=== PATIENT | female | born 1980 | race Hispanic/Latino ===

== ENCOUNTER 2021-01-15 16:28 | Emergency (ER) | payer MEDICAID ==
[~2021-01-15] VITALS: Ht 170.2 cm; Wt 81.6 kg
[2021-01-15] MEDS ORDERED: 0.9%NACL 1000ML 1,000 ML IV ONE (17:00)
[2021-01-15 17:04] LABS: BASOPHILS % (AUTO) 0.4 % (0.0-5.0); EOSINOPHILS % (AUTO) 1.1 % (0.0-8.0); HEMATOCRIT 38.3 % (36-48); LYMPHOCYTES % (AUTO) 23.1 % (21.0-51.0); MEAN CORPUSCULAR HEMOGLOBIN 30.7 pg (27.0-33.0); MEAN CORPUSCULAR HGB CONC 33.9 g/dL (32.0-36.0); MEAN CORPUSCULAR VOLUME 90.5 fL (79-99); MONOCYTES % (AUTO) 6.1 % (3.0-13.0); NEUTROPHILS % (AUTO) 68.9 % (40.0-77.0); PLATELET COUNT (AUTO) 260 K/uL (130-400); RED BLOOD CELL COUNT(AUTO) 4.23 MIL/uL (4.00-5.50); RED CELL DISTRIBUTION WIDTH 13.1 % (11.0-15.5); WHITE BLOOD COUNT (AUTO) 10.1 K/uL (4.8-10.8)
[2021-01-15 17:15] LABS: CREATININE 0.9 mg/dL (0.5-1.5); POTASSIUM 4.1 mmol/L (3.5-5.1)
[2021-01-15 17:20] LABS: BILIRUBIN,TOTAL 0.5 mg/dL (0.2-1.0)
[2021-01-15 17:46] LABS: APPEARANCE,URINE Cloudy (CLEAR); BILIRUBIN,URINE Negative (NEGATIVE); COLOR,URINE Yellow (YELLOW); GLUCOSE, URINE (UA) Negative (NEGATIVE); KETONES,URINE Trace mg/dL (NEGATIVE); LEUKOCYTE ESTERASE ,URINE Small (NEGATIVE); NITRATE,URINE Negative (NEGATIVE); OCCULT BLOOD,URINE Negative (NEGATIVE); PH,URINE 5.5 (5.0-8.0); PROTEIN,URINE Negative (NEGATIVE); UROBILINOGEN,URINE 0.2 mg/dL (0.2-1.0)
[2021-01-15 17:55] LABS: BACTERIA,URINE Few /HPF (None Seen); MUCUS,URINE Few LPF (None Seen); RBC,URINE 0-1 /HPF (0-1); SQUAMOUS EPITHELIAL CELL,UR Moderate /HPF (0-2)
[2021-01-15] MEDS ORDERED: IOHEXOL-350 75 ML VIAL IV ONE (18:38)
[2021-01-15 20:40] VITALS: BP 133/91
[2021-01-15] MEDS ORDERED: ONDANSETRON 4MG INJ IVP ONE (21:00)
[2021-01-15] MEDS ORDERED: MORPHINE 4 MG SYG IV ONE (21:00)
[2021-01-15] MEDS ORDERED: ONDANSETRON 4MG INJ ONE (21:07)
[2021-01-15] MEDS ORDERED: MORPHINE 4 MG SYG ONE (21:08)
[2021-01-15] MEDS ORDERED: KETOROLAC 30MG VIAL (30MG/ML) ONE (23:45)
[2021-01-16] MEDS ORDERED: KETOROLAC 30MG VIAL (30MG/ML) IV ONE
[2021-01-16] MEDS ORDERED: MORPHINE 4 MG SYG ONE (00:43)
[2021-01-16] MEDS ORDERED: MORPHINE 4 MG SYG IV ONE (01:00)
== END 2021-01-16 02:38 | disposition home or self-care (01) ==
LOC: EDH 16:28
DX: N83.201 Unspecified ovarian cyst, right side (principal); M06.9 Rheumatoid arthritis, unspecified; J45.909 Unspecified asthma, uncomplicated; I10 Essential (primary) hypertension; M79.7 Fibromyalgia; Z90.710 Acquired absence of both cervix and uterus
CPT/HCPCS: 36415; 74177; 76830; 80053; 81001; 81025; 85025; 87210; 87486; 87797; 96361; 96374; 96375; 96376; 99285; J1885; J2270 ×2; J2405; J3490; J7030; Q9967

== ENCOUNTER 2022-03-08 01:10 | Emergency (ER) | payer MEDICAID ==
[~2022-03-08] VITALS: Ht 170.2 cm; Wt 81.2 kg
[~2022-03-08 01:10] MED LIST: BACI1CAP6 PO; BENZ-39 PO; IBUP-2070 PO; METO10TA41 PO
[2022-03-08 01:33] LABS: BASOPHILS % (AUTO) 0.4 % (0.0-5.0); EOSINOPHILS % (AUTO) 1.7 % (0.0-8.0); LYMPHOCYTES % (AUTO) 43.7 % (21.0-51.0); MEAN CORPUSCULAR HEMOGLOBIN 32.3 pg (27.0-33.0); MEAN CORPUSCULAR HGB CONC 34.7 g/dL (32.0-36.0); MEAN CORPUSCULAR VOLUME 92.9 fL (79-99); MONOCYTES % (AUTO) 7.4 % (3.0-13.0); NEUTROPHILS % (AUTO) 46.6 % (40.0-77.0); PLATELET COUNT (AUTO) 246 K/uL (130-400); RED BLOOD CELL COUNT(AUTO) 4.09 MIL/uL (4.00-5.50); RED CELL DISTRIBUTION WIDTH 12.3 % (11.0-15.5); WHITE BLOOD COUNT (AUTO) 8.4 K/uL (4.8-10.8)
[2022-03-08 01:47] LABS: CREATININE 0.8 mg/dL (0.5-1.5); POTASSIUM 3.3 mmol/L (3.5-5.1)
[2022-03-08 01:53] LABS: ALBUMIN 4.1 g/dL (3.5-5.0); TOTAL PROTEIN, SERUM 7.4 g/dL (6.0-8.3)
[2022-03-08] MEDS ORDERED: ACETAMINOPHEN 500 MG TABLET PO ONE (03:00)
[2022-03-08] MEDS ORDERED: KCL 20 MEQ ERTAB PO ONE (03:00)
[2022-03-08] MEDS ORDERED: LISINOPRIL 20 MG TABLET PO ONE (03:00)
[2022-03-08 04:05] VITALS: BP 153/89
[2022-03-08] MEDS ORDERED: LISINOPRIL 20 MG PO (04:15)
== END 2022-03-08 04:37 | disposition home or self-care (01) ==
LOC: EDH 01:10
DX: I10 Essential (primary) hypertension (principal); M06.9 Rheumatoid arthritis, unspecified; Z96.652 Presence of left artificial knee joint; Z90.710 Acquired absence of both cervix and uterus; Z79.899 Other long term (current) drug therapy
CPT/HCPCS: 36415; 71045; 80053; 84484; 85025; 93005